=== PATIENT | female | born 1960 | race Caucasian/White ===

== ENCOUNTER → 2016-10-27 | Outpatient (CLI) | payer BC ==
[~2016-10-27] MED LIST: ALDACTONE50 MG PO; CARAFATE1 GM PO; DEXILANT30 MG; LASIX80 MG PO; MIRALAX17 GM PO; NEXIUM40 MG PO; NILSTAT60 ML; TYLENOL EXTRA500 MG PO; XANAX0.25 MG PO; ZOFRAN ODT 4 MG4 MG PO; ZYKADIA150 MG PO; [UNRECOGNIZED DRUG - OTHER] PO
== END | disposition disaster alternative care site (69) ==
LOC: GRAD 08:40
DX: C34.81 Malignant neoplasm of overlapping sites of right bronchus and lung (principal); C78.7 Secondary malignant neoplasm of liver and intrahepatic bile duct; D50.0 Iron deficiency anemia secondary to blood loss (chronic); K90.9 Intestinal malabsorption, unspecified; R91.1 Solitary pulmonary nodule
CPT/HCPCS: J7030; Q9967

== ENCOUNTER → 2016-11-12 | Outpatient (CLI) | payer BC | END | disposition disaster alternative care site (69) | LOC: GRAD 12:10 | DX: C78.7 Secondary malignant neoplasm of liver and intrahepatic bile duct (principal); C79.01 Secondary malignant neoplasm of right kidney and renal pelvis; C80.1 Malignant (primary) neoplasm, unspecified | CPT/HCPCS: A9539; J1940 ==

== ENCOUNTER → 2017-01-18 | Outpatient (CLI) | payer BC | END | disposition disaster alternative care site (69) | LOC: GOPD 01-14 → GRAD 07:07 | DX: C34.81 Malignant neoplasm of overlapping sites of right bronchus and lung (principal); C78.7 Secondary malignant neoplasm of liver and intrahepatic bile duct; K90.9 Intestinal malabsorption, unspecified; D50.0 Iron deficiency anemia secondary to blood loss (chronic) | CPT/HCPCS: J2001; J7030 ==

== ENCOUNTER → 2017-03-17 | Outpatient (CLI) | payer BC | END | disposition disaster alternative care site (69) | LOC: GRAD 08:45 | DX: C34.81 Malignant neoplasm of overlapping sites of right bronchus and lung (principal); C78.7 Secondary malignant neoplasm of liver and intrahepatic bile duct; K90.9 Intestinal malabsorption, unspecified; D50.0 Iron deficiency anemia secondary to blood loss (chronic); R11.2 Nausea with vomiting, unspecified ==